=== PATIENT | male | born 1990 | race Caucasian/White ===

== ENCOUNTER 2016-08-08 13:30 | Emergency (ER) | payer SELFPAY ==
[~2016-08-08] VITALS: Ht 167.6 cm; Wt 72.3 kg
[2016-08-08 13:34] VITALS: BP 134/88; PULSE 79; TEMP 36.7; O2SAT 96; Ht 167.6 cm; Wt 72.3 kg
== END 2016-08-08 13:50 | disposition other institution (70) ==
LOC: C.EDB 13:32 → C.EDD 13:50
DX: X58.XXXA Exposure to other specified factors, initial encounter (principal); Y99.0 Civilian activity done for income or pay